=== PATIENT | male | born 1995 | race African-American/Black ===

== ENCOUNTER 2019-02-06 18:26 | Inpatient (IN) | payer OTHER ==
[~2019-02-06] VITALS: Ht 172.7 cm; Wt 57.6 kg
[2019-02-06 18:30] VITALS: BP 131/67
--- NOTE | 2019-02-06 18:42 | NUR ---
PT SITTING ON THE CHAIR, NEXT TO THE NURSING STATION. 1:1 OBSERVATION BY STEFFEN BLACK
--- NOTE | 2019-02-06 19:05 | NUR ---
PT AMBULATED TO BED 4 WITH STEADY GAIT. SAFETY ENSURED.
--- NOTE | 2019-02-06 19:25 | NUR ---
23 Y/O M BIB SELF FOR SI. AAOX4. PER PT ADMITTED TO CONSUMING AN ENTIRE BOTTLE OF MALIBU RUM. PT STATED "I'M A PROFESIONAL JUSTIN. I'VE DONE THIS BEFORE." WHEN ASKED WHAT PT METHOD OF HARM WAS, PT STATED " I JUST WANT TO JUMP OFF A TRAIN." PT DENIES HI AND AUDITORY/VISUAL HALLUCINATIONS. PT DOES NOT MAKE EYE CONTACT, EYES REMAINED CLOSED DURING QUESTIONING. SPEECH IS MUMBLED. BEHAVIOR IS CALM AND COOPERATIVE. PT PLACED IN GOWN. BEDRAILX2 UP. BED IN LOCKED POSTION. ERMD MADE AWARE OF PT STATUS.
[2019-02-06 20:22] LABS: BASOPHILS # (AUTO) 0.1 K/uL (0.00-0.22); BASOPHILS % (AUTO) 0.8 % (0.0-2.0); EOSINOPHILS % (AUTO) 0.2 % (0.0-4.0); HEMATOCRIT 41.7 % (36-52); HEMOGLOBIN 13.7 g/dL (12.0-18.0); LYMPHOCYTES # (AUTO) 2.4 K/uL (2.0-11.5); LYMPHOCYTES % (AUTO) 17.8 % (20.5-51.1); MEAN CORPUSCULAR HEMOGLOBIN 28 pg (27-31); MEAN CORPUSCULAR HGB CONC 33 g/dL (33-37); MONOCYTES # (AUTO) 1.1 K/uL (0.8-1.0); NEUTROPHILS # (AUTO) 9.9 K/uL (1.8-7.7); NEUTROPHILS % (AUTO) 73.2 % (42.2-75.2); PLATELET COUNT (AUTO) 230 K/uL (140-450); RED BLOOD CELL COUNT(AUTO) 4.85 MIL/uL (4.20-6.10); RED CELL DISTRIBUTION WIDTH 13.6 % (11.6-13.7); WHITE BLOOD COUNT (AUTO) 13.5 K/uL (4.8-10.8)
--- NOTE | 2019-02-06 20:22 | NUR ---
TELEPSYCH REQUEST INITIATED
[2019-02-06 20:40] LABS: ANION GAP 11.8 (8-16); CARBON DIOXIDE 29.7 mmol/L (21-32); CHLORIDE 98 mmol/L (98-107); CREATININE 1.2 mg/dL (0.7-1.3); GFR ARICAN-AMERICAN 96 mL/min (>90); GLUCOSE 92 mg/dL (74-106); POTASSIUM 3.5 mmol/L (3.5-5.1); SODIUM SERUM 136 mmol/L (136-145); UREA NITROGEN, BLOOD 10 mg/dL (7-18)
[2019-02-06 20:44] LABS: APPEARANCE,URINE CLEAR (CLEAR); BILIRUBIN,URINE NEGATIVE (NEGATIVE); BLOOD, URINE NEGATIVE (NEGATIVE); COLOR,URINE YELLOW (YELLOW); LEUKOCYTE ESTERASE ,URINE NEGATIVE (NEGATIVE); NITRITE, URINE NEGATIVE (NEGATIVE); PH,URINE 6.5 (5.0-9.0); UGLUCOSE NEGATIVE (NEGATIVE)
[2019-02-06 20:46] LABS: ALBUMIN 3.6 g/dL (3.4-5.0); ASPARTATE AMINOTRANSFERASE 24 U/L (15-37); SALICYLATE 3.1 mg/dL (2.8-20.0)
[2019-02-06 20:52] LABS: BARBITURATE, URINE NEG. ng/ml (NEG <=200); BENZODIAZEPINE, URINE NEG. ng/mL (NEG <=200); CANNABINOID, URINE NEG. ng/mL (NEG <=50); COCAINE, URINE NEG. ng/mL (NEG <=300); OPIATE, URINE NEG. ng/mL (NEG <=2000); PHENCYCLIDINE SCREEN,URINE NEG. ng/mL (NEG <=25)
[2019-02-06 21:10] LABS: ACETAMINOPHEN < 0.5 ug/ml (10-30)
--- NOTE | 2019-02-06 21:25 | NUR ---
PT AMBULATED TO THE RESTROOM. STEADY GAIT OBSERVED.
--- NOTE | 2019-02-06 21:45 | NUR ---
PT MOTHER AT BEDSIDE.
--- NOTE | 2019-02-06 23:00 | NUR ---
SPOKE WITH DR. MOLINA TO GIVE BACKGROUND INFORMATION REGARDING PT.
--- NOTE | 2019-02-06 23:09 | NUR ---
SPOKE WITH PT MOTHER WHO STATED PT HAS PMH OF DEPRESSION, SCHIZOPRHENIA AND BIPOLAR DISORDER BUT IS NOT COMPLIANT WITH HIS MEDICATION. PT MOTHER STATED THAT BEFORE TODAY "HAD NOT SEEN HIM IN 11 DAYS. THERE WAS AN DISAGREEMENT AT HOME AND HE LEFT." MOTHER AT BEDSIDE. WILL CONTINUE TO MONITOR.
--- NOTE | 2019-02-06 23:24 | NUR ---
TELEPSYCH CONSULT IN PROGRESS. MOM SITTING AT BEDSIDE.
--- NOTE | 2019-02-06 23:43 | NUR ---
RECEIVED VERBAL ORDERS FROM DR. MOLINA, TELEPSYCH: PT TO BE PLACED ON 5150 HOLD FOR DANGER TO SELF AND WILL REQUIRE ADMISSION. AWAITING FAXED ORDERS.
--- NOTE | 2019-02-06 23:50 | NUR ---
called up [facility],for hold, and they will come as soon as they re available.
--- NOTE | 2019-02-07 | NUR ---
PT LYING IN BED ASLEEP. VISIBLE CHEST RISE AND FALL NOTED. EMT AT BEDSIDE FOR 1:1 MONITORING. BED IN LOWEST POSTION. BEDRAILSX2 UP. ALL NEEDS MET AT THIS TIME. WILL CONTINUE TO MONITOR.
--- NOTE | 2019-02-07 00:45 | NUR ---
[facility] AT BEDSIDE.
--- NOTE | 2019-02-07 00:48 | NUR ---
[facility], WROTE [phone] HOLD FOR PT.
--- NOTE | 2019-02-07 01:13 | NUR ---
[facility] has received patients chart via fax from ED. I will begin calling contracted IE for bed placement.
--- NOTE | 2019-02-07 02:15 | NUR ---
PT ASLEEP, CHEST RISE AND FALL NOTED. EMT AT BEDSIDE FOR 1:1 MONITORING. BED IN LOWEST POSTION. BEDRAILSX2 UP. ALL NEEDS MET AT THIS TIME. WILL CONTINUE TO MONITOR.
--- NOTE | 2019-02-07 03:43 | NUR ---
No beds available at [facility] contracted psych facilities at this time. [facility], spoke with Lottie. Packet was faxed. [facility], spoke with Grady. [facility], spoke with Mitzi. Packet was faxed [facility], spoke with Kalani. Packet was faxed [facility], spoke with Ailyn. [facility], spoke with Michael. [facility], spoke with Hannah. Packet was faxed
--- NOTE | 2019-02-07 04:01 | NUR ---
PT AWAKE AND SITTING IN BED QUIETLY. GIVEN WATER. EMT AT BEDSIDE FOR 1:1 MONITORING. ALL NEEDS MET AT THIS TIME. WILL CONTINUE TO MONITOR.
--- NOTE | 2019-02-07 04:18 | NUR ---
PT PROVIDED MEAL. ALL NEEDS MET AT THIS TIME.
--- NOTE | 2019-02-07 04:50 | NUR ---
Patient admitted to care of Dr. Laura. Admited to [facility]. Went to room 110A. Belongings list completed. VSS at time of transport. Report to STEFFEN Barajas. Transfer of care at this time.
[2019-02-07 05:05] VITALS: BP 119/68
--- NOTE | 2019-02-07 05:05 | NUR ---
Admitted from ED, with chief complaint of SUICIDAL IDEATION , 23 y/o ,Male, Passive, easily arousable but wants to go to sleep right away. Initial assessment done. Vital signs checked. Pt denies any pain at this time. Pt oriented to call light, bed, phone,television, bathroom, smoking policy, visiting hours, procedures, ID bracelet on. Belongings list checked. MRSA collected. Sitter at bedside.
--- NOTE | 2019-02-07 05:40 | NUR ---
PAGED DR GREY TO GET ADMITTING ORDERS. WILL AWAIT FOR CALL BACK.
--- NOTE | 2019-02-07 06:15 | NUR ---
SEEN PT SLEEPING COMFORTABLY. SITTER AT BEDSIDE. WILL ENDORSE CARE TO DAYSHIFT NURSE.
--- NOTE | 2019-02-07 07:05 | NUR ---
RECEIVED BEDSIDE REPORT FROM STEFFEN GONZALEZ. PT STABLE, SLEEPING, BUT EASILY AROUSABLE. NO SIGNS OF DISTRESS NOTED. NO REDNESS, SWELLING, OR INFLAMMATION NOTED ON IV SITE. CALL CARVER WITHIN REACH. BED IN LOWEST POSITION. SAFETY MEASURES IN PLACE. PLAN OF CARE REVIEWED. 1:1 SITTER AT BEDSIDE.
--- NOTE | 2019-02-07 07:25 | NUR ---
RECEIVED TELEPHONE ORDER FROM DR GREY FOR REGULAR DIET. WILL PUT IN ORDER.
[2019-02-07 08:00] VITALS: BP 121/76
--- NOTE | 2019-02-07 08:17 | NUR ---
PATIENT HAS BEEN SCREENED AND CATEGORIZED LOW NUTRITION RISK. PATIENT WILL BE SEEN WITHIN 7 DAYS OF ADMISSION. 02/13/[address]
--- NOTE | 2019-02-07 08:35 | NUR ---
DR MARTIN AT THE BEDSIDE.
[2019-02-07 08:37] LABS: BASOPHILS % (AUTO) 0.5 % (0.0-2.0); EOSINOPHILS # (AUTO) 0.1 K/uL (0-0.4); EOSINOPHILS % (AUTO) 0.6 % (0.0-4.0); HEMATOCRIT 40.8 % (36-52); HEMOGLOBIN 13.5 g/dL (12.0-18.0); LYMPHOCYTES # (AUTO) 2.1 K/uL (2.0-11.5); LYMPHOCYTES % (AUTO) 19.6 % (20.5-51.1); MEAN CORPUSCULAR HEMOGLOBIN 28 pg (27-31); MEAN CORPUSCULAR HGB CONC 33 g/dL (33-37); MEAN CORPUSCULAR VOLUME 85.8 fL (80-94); MONOCYTES # (AUTO) 1.1 K/uL (0.8-1.0); MONOCYTES % (AUTO) 10.5 % (1.7-9.3); NEUTROPHILS # (AUTO) 7.3 K/uL (1.8-7.7); NEUTROPHILS % (AUTO) 68.8 % (42.2-75.2); PLATELET COUNT (AUTO) 227 K/uL (140-450); RED BLOOD CELL COUNT(AUTO) 4.76 MIL/uL (4.20-6.10); RED CELL DISTRIBUTION WIDTH 13.6 % (11.6-13.7); WHITE BLOOD COUNT (AUTO) 10.6 K/uL (4.8-10.8)
--- NOTE | 2019-02-07 10:28 | NUR ---
RECHECKED PT'S TEMP, 98.3. WILL CONTINUE TO MONITOR.
--- NOTE | 2019-02-07 12:00 | NUR ---
PT EATING LUNCH, NO OTHER NEEDS AT THIS TIME.
--- NOTE | 2019-02-07 14:26 | NUR ---
PT STABLE, RESTING IN BED. FAMILY AT THE BEDSIDE.
[2019-02-07 16:00] VITALS: BP 123/75
--- NOTE | 2019-02-07 16:10 | NUR ---
VITAL SIGNS TAKEN, PT STABLE. NO SIGNS OF DISTRESS NOTED.
--- NOTE | 2019-02-07 18:20 | NUR ---
PT STABLE, SLEEPING, BUT EASILY AROUSABLE. CHEST RISE AND FALL VISIBLY NOTED.
--- NOTE | 2019-02-07 19:25 | NUR ---
ENDORSED PT TO STEFFEN RODRIGUEZ FOR CONTINUITY OF CARE. PT STABLE.
--- NOTE | 2019-02-07 19:26 | NUR ---
RECEIVED BEDSIDE REPORT FROM STEFFEN SCHMITZ. PT STABLE, SLEEPING COMFORTABLY. NO SIGNS OF DISTRESS NOTED. IV SITE ON LAC, 18G, INTACT, PATENT, ASYMPTOMATIC. SKIN INTACT, WARM AND DRY TO TOUCH. BED IN LOWEST POSITION. SAFETY MEASURES IN PLACE. PLAN OF CARE REVIEWED. SITTER AT BEDSIDE. WILL CONTINUE TO MONITOR.
[2019-02-07] MEDS: LITHIUM CARBONATE 300 MG TAB PO SCH (21:10)
--- NOTE | 2019-02-07 21:10 | NUR ---
GIVEN LITHIUM CARBONATE MD ORDERED. PT TOLERATED WELL. WILL CONTINUE TO MONITOR.
[2019-02-08] VITALS: BP 101/60
--- NOTE | 2019-02-08 | NUR ---
VS CHECKED, WITHIN PT'S BASELINE. WILL CONTINUE TO MONITOR.
--- NOTE | 2019-02-08 01:44 | NUR ---
Still no update on bed placement with [facility] contracted facilities. Unit will be notified if a bed becomes available and will continue to monitor RN/MD notes.
--- NOTE | 2019-02-08 02:30 | NUR ---
PT SLEEPING IN BED COMFORTABLY. RESPIRATION EVEN AND UNLABORED. NO ACUTE DISTRESS NOTED.
--- NOTE | 2019-02-08 04:45 | NUR ---
PT SLEEPING IN BED COMFORTABLY. NO ACUTE DISTRESS NOTED. BED IN LOW POSITION. CALL LIGHT WITHIN REACH.
--- NOTE | 2019-02-08 06:32 | NUR ---
PT AWAKE, LYING IN THE BED. NO ACUTE DISTRESS NOTED. PT IN STABLE CONDITION.
--- NOTE | 2019-02-08 07:05 | NUR ---
RECEIVED ENDORSEMENT FROM MANAGER CORPORATE NURSE. PATIENT IS SLEEPING, EASILY AROUSABLE. RESPIRATIONS ARE EVEN AND UNLABORED ON ROOM AIR. PATIENT DENIES ANY PAIN AT THIS TIME. PLAN OF CARE WAS REVIEWED WITH PATIENT, PATIENT VERBALIZED UNDERSTANDING. SAFETY MEASURES IN PLACE, SITTER AT BEDSIDE. Addendum: 02/08/19 at 0851 by Marie Hart RN LEFT AC 18G IV INTACT AND SL.
[2019-02-08 08:00] VITALS: BP 119/72
[2019-02-08] MEDS ORDERED: ARIPiprazole 10 MG TAB PO SCH (09:00)
[2019-02-08] MEDS: LITHIUM CARBONATE 300 MG TAB PO SCH (09:18)
--- NOTE | 2019-02-08 09:44 | NUR ---
SPOKE WITH PATIENTS MOM. AFTER DISCUSSING WITH HER AND DR. SAMUEL, PATIENT IS TO BE DISCHARGED TO CARE HOME IS MOM IS UNWILLING TO TAKE PATIENT HOME. MOM STATED THAT SHE WOULD TAKE PATIENT HOME. Addendum: 02/08/19 at 1006 by Marie Hart RN DR. SAMUEL DID NOT WISH TO SPEAK WITH MOM AT THIS TIME, STATES THAT PATIENT HAS BEEN CLEARED AND HAS NO FURTHER NEEDS.
[2019-02-08] MEDS ORDERED: ESK300 PO (10:51)
[2019-02-08] MEDS ORDERED: ABI10 PO (10:51)
--- NOTE | 2019-02-08 10:55 | NUR ---
PER DR. QUE AMAYA TO WRITE DISCHARGE PRESCRIPTION.
--- NOTE | 2019-02-08 11:25 | NUR ---
DR. MURPHY SAW PATIENT. ALL MOMS CONCERNS WERE ADDRESSED. INSPECTOR STRUCTURAL BONDING TO SPEAK WITH ABOUT RESOURCES. NO OTHER NEEDS AT THIS TIME.
--- NOTE | 2019-02-08 11:45 | NUR ---
MET WITH PATIENT'S MOTHER FRANCE AT THE BEDSIDE. PROVIDED HER WITH MENTAL HEALTH AND HOMELESS RESOURCES. I ALSO REMINDED HER OF THE PATIENT'S FOLLOW UP POST DISCHARGE APPOINTMENT. SHE STATED SHE COULD NOT FIND THE APPOINTMENT PAPER. PROVIDED HER WITH THE APPOINTMENT COPY. INSTRUCTED HER THAT IF IN ANY CASE THAT THEY COULD NOT MAKE IT TO THE APPOINTMENT TO CALL AHEAD OF TIME TO CANCEL OR RESCHEDULE. ABLE TO VERBALIZE UNDERSTANDING.
--- NOTE | 2019-02-08 11:46 | NUR ---
DISCHARGE INSTRUCTIONS GIVEN. PAPERWORK IS SIGNED. ALL QUESTIONS AND CONCERNS ADDRESSED. IV WAS REMOVED, CANNULA INTACT WITH MINIMAL BLEEDING. PATIENT TO CHANGE AND BE DISCHARGED HOME WITH HIS MOM.
--- NOTE | 2019-02-08 11:51 | NUR ---
PATIENT AMBULATED OFF UNIT WITH STEADY GAIT ACCOMPANIED BY MOM. ALL BELONGINGS LEFT WITH PATIENT. ID BAND WAS REMOVED. PATIENT IS STABLE AT THIS TIME.
== END 2019-02-08 11:15 | disposition home or self-care (01) | DRG 751 ==
LOC: MED 18:26 → MTU 02-07 04:34
PROVIDERS: ADMIT Internal Medicine Pulmonary Disease; ATTEND Internal Medicine Pulmonary Disease
DX: F29 Unspecified psychosis not due to a substance or known physiological condition (principal); R45.851 Suicidal ideations; D72.829 Elevated white blood cell count, unspecified; F17.210 Nicotine dependence, cigarettes, uncomplicated; J45.909 Unspecified asthma, uncomplicated; Z91.5 Personal history of self-harm; B34.9 Viral infection, unspecified
CPT/HCPCS: 36415; 71045; 80053; 80305; 81003; 82948; 85025; 87081; 99285; G0480; G0482